=== PATIENT | male | born 1975 | race Caucasian/White ===

== ENCOUNTER 2017-01-23 12:42 | Emergency (ER) | payer SELFPAY ==
[~2017-01-23] VITALS: Ht 182.9 cm; Wt 85.0 kg
[2017-01-23 12:46] VITALS: BP 151/92; PULSE 78; RESP 16; TEMP 98.5; O2SAT 99
[2017-01-23] MEDS ORDERED: SODIUM CHLOR 0.9% 1000 ML INJ 1,000 ML IV SCH (12:55)
[2017-01-23] MEDS ORDERED: ALUMINUM/MAGNESIUM/SIMETH 30 ML CUP PO ONE (13:00)
[2017-01-23] MEDS ORDERED: LIDOCAINE VISCOUS 2% SOLN 15 ML UDC PO ONE (13:00)
[2017-01-23] MEDS ORDERED: ONDANSETRON HCL 4 MG/2 ML VIAL IVP ONE (13:00)
[2017-01-23] MEDS ORDERED: MORPHINE SULFATE 4 MG/ML INJ IV PUSH ONE (13:00)
[2017-01-23] MEDS ORDERED: SODIUM CHLORIDE 0.9% FLUSH 10 ML FLUSH IV FLUSH PRN (13:00)
[2017-01-23] MEDS ORDERED: FAMOTIDINE 20 MG/2 ML VIAL IV PUSH ONE (13:00)
--- NOTE | 2017-01-23 13:00 | PD ---
HPI Chief Complaint: GI Complaint Time Seen by Provider: 12:49 Travel History International Travel<30 days: No Contact w/Intl Traveler<30days: No Traveled to known affect area: No History of Present Illness HPI The patient is a 41-year-old male who presents to the emergency department for one week of nausea, epigastric abdominal pain, and reflux type symptoms. The patient states he's had some intermittent nausea over the last week with epigastric discomfort. He occasionally will have a foul taste in his mouth like he is going to vomit, however, denies any actual vomiting. He does note a few episodes of loose stool, but denies any constipation or chronic diarrhea. Epigastric abdominal pain is sharp, burning, nonradiating. He does have a history of similar symptoms in the past and states he had a upper GI performed which revealed an ulcer at the proximal duodenum. He was placed on medicines and his symptoms resolved within 1 week. He denies any previous abdominal surgeries. He quit drinking alcohol 2 years ago and denies any history pancreatitis or biliary colic. He denies any dysuria, frequency, or urgency. [facility] Past Medical History Narrative Medical Duodenal ulcer Past Surgical History Narrative Surgical Previous upper GI performed Social History Alcohol Use: No Tobacco Use: Yes Allergies-Medications (Allergen,Severity, Reaction): Coded Allergies: No Known Allergies (Unverified , 01/23/17) Reported Meds & Prescriptions Reported Meds & Active Scripts Active Reported Pepto-Bismol Max Strength Liq (Bismuth Subsalicylate) 525 Mg/15 Ml Susp 30 Ml PO PRN Do not exceed 4 doses (120 mL or 8 TBSP) in 24 hours. Review of Systems Except as stated in HPI: all other systems reviewed are Neg General / Constitutional: No: Fever Cardiovascular: No: Chest Pain or Discomfort Respiratory: No: Shortness of Breath Gastrointestinal: Positive: Nausea, Abdominal Pain, Indigestion, No: Vomiting, Diarrhea, Loss of Appetite Genitourinary: No: Dysuria Physical Exam Narrative GENERAL: Awake, alert, pleasant 41-year-old male who appears his stated age and is in no acute respiratory distress. SKIN: Focused skin assessment warm/dry. HEAD: Atraumatic. Normocephalic. EYES: Pupils equal and round. No scleral icterus. No injection or drainage. ENT: No nasal bleeding or discharge. Mucous membranes pink and moist. NECK: Trachea midline. No JVD. CARDIOVASCULAR: Regular rate and rhythm. No murmur appreciated. RESPIRATORY: No accessory muscle use. Clear to auscultation. Breath sounds equal bilaterally. GASTROINTESTINAL: Abdomen soft, tenderness in epigastrium. No guarding or rigidity. Negative McBurney's. Negative Espino's. MUSCULOSKELETAL: No obvious deformities. No clubbing. No cyanosis. No edema. NEUROLOGICAL: Awake and alert. No obvious cranial nerve deficits. Motor grossly within normal limits. Normal speech. PSYCHIATRIC: Appropriate mood and affect; insight and judgment normal. Data Data Last Documented VS Vital Signs Date Time Temp Pulse Resp B/P (MAP) Pulse Ox O2 Delivery O2 Flow Rate FiO2 01/23/17 13:05 78 15 140/84 (102) 98 Room Air 01/23/17 12:46 98.5 Orders Orders Complete Blood Count With Diff (01/23/17 12:55) Comprehensive Metabolic Panel (01/23/17 12:55) Lipase (01/23/17 12:55) Iv Access Insert/Monitor (01/23/17 12:55) Ecg Monitoring (01/23/17 12:55) Oximetry (01/23/17 12:55) Morphine Inj (Morphine Inj) (01/23/17 13:00) Ondansetron Inj (Zofran Inj) (01/23/17 13:00) Sodium Chlor 0.9% 1000 Ml Inj (Ns 1000 M (01/23/17 12:55) Sodium Chloride 0.9% Flush (Ns Flush) (01/23/17 13:00) Famotidine Inj (Pepcid Inj) (01/23/17 13:00) Al-Mag Hy-Si 40-40-4 Mg/Ml Liq (Mag-Al P (01/23/17 13:00) Lidocaine 2% Viscous (Xylocaine 2% Visco (01/23/17 13:00) Labs Laboratory Tests Test 01/23/17 13:35 White Blood Count 7.9 TH/MM3 Red Blood Count 4.98 MIL/MM3 Hemoglobin 14.7 GM/DL Hematocrit 43.7 % Mean Corpuscular Volume 87.6 FL Mean Corpuscular Hemoglobin 29.6 PG Mean Corpuscular Hemoglobin Concent 33.8 % Red Cell Distribution Width 13.2 % Platelet Count 199 TH/MM3 Mean Platelet Volume 8.8 FL Neutrophils (%) (Auto) 60.3 % Lymphocytes (%) (Auto) 29.2 % Monocytes (%) (Auto) 8.5 % Eosinophils (%) (Auto) 0.6 % Basophils (%) (Auto) 1.4 % Neutrophils # (Auto) 4.8 TH/MM3 Lymphocytes # (Auto) 2.3 TH/MM3 Monocytes # (Auto) 0.7 TH/MM3 Eosinophils # (Auto) 0.0 TH/MM3 Basophils # (Auto) 0.1 TH/MM3 CBC Comment DIFF FINAL Differential Comment Blood Urea Nitrogen 8 MG/DL Creatinine 0.68 MG/DL Random Glucose 76 MG/DL Total Protein 6.7 GM/DL Albumin 3.5 GM/DL Calcium Level 8.5 MG/DL Alkaline Phosphatase 72 U/L Aspartate Amino Transf (AST/SGOT) 18 U/L Alanine Aminotransferase (ALT/SGPT) 23 U/L Total Bilirubin 0.5 MG/DL Sodium Level 139 MEQ/L Potassium Level 4.2 MEQ/L Chloride Level 105 MEQ/L Carbon Dioxide Level 26.7 MEQ/L Anion Gap 7 MEQ/L Estimat Glomerular Filtration Rate 128 ML/MIN Lipase 94 U/L MDM Medical Decision Making Medical Screen Exam Complete: Yes Emergency Medical Condition: Yes Medical Record Reviewed: Yes Interpretation(s) Laboratory Tests Test 01/23/17 13:35 White Blood Count 7.9 TH/MM3 Red Blood Count 4.98 MIL/MM3 Hemoglobin 14.7 GM/DL Hematocrit 43.7 % Mean Corpuscular Volume 87.6 FL Mean Corpuscular Hemoglobin 29.6 PG Mean Corpuscular Hemoglobin Concent 33.8 % Red Cell Distribution Width 13.2 % Platelet Count 199 TH/MM3 Mean Platelet Volume 8.8 FL Neutrophils (%) (Auto) 60.3 % Lymphocytes (%) (Auto) 29.2 % Monocytes (%) (Auto) 8.5 % Eosinophils (%) (Auto) 0.6 % Basophils (%) (Auto) 1.4 % Neutrophils # (Auto) 4.8 TH/MM3 Lymphocytes # (Auto) 2.3 TH/MM3 Monocytes # (Auto) 0.7 TH/MM3 Eosinophils # (Auto) 0.0 TH/MM3 Basophils # (Auto) 0.1 TH/MM3 CBC Comment DIFF FINAL Differential Comment Blood Urea Nitrogen 8 MG/DL Creatinine 0.68 MG/DL Random Glucose 76 MG/DL Total Protein 6.7 GM/DL Albumin 3.5 GM/DL Calcium Level 8.5 MG/DL Alkaline Phosphatase 72 U/L Aspartate Amino Transf (AST/SGOT) 18 U/L Alanine Aminotransferase (ALT/SGPT) 23 U/L Total Bilirubin 0.5 MG/DL Sodium Level 139 MEQ/L Potassium Level 4.2 MEQ/L Chloride Level 105 MEQ/L Carbon Dioxide Level 26.7 MEQ/L Anion Gap 7 MEQ/L Estimat Glomerular Filtration Rate 128 ML/MIN Lipase 94 U/L Differential Diagnosis Differential diagnosis includes gastritis, peptic ulcer disease, pancreatitis, biliary colic, cholecystitis, GERD, hiatal hernia. Narrative Course IV was established, labs are drawn and sent, and the patient was placed on cardiac telemetry monitoring and continuous pulse oximetry monitoring. The patient was administered Zantac, GI cocktail, morphine, Zofran, and placed on IV fluids. Lipase level was sent to lab. The patient's white count is unremarkable. LFTs and lipase are normal. The patient was reevaluated at 2 PM. The patient states his symptoms have resolved. Most likely patient has gastritis and/or peptic ulcer disease. I will place the patient on Protonix for 6 weeks of treatment. He is advised to follow-up with gastroenterology if symptoms persist for repeat EGD. Diagnosis Primary Impression: Epigastric abdominal pain Additional Impression: Nausea Patient Instructions: General Instructions Additional Instructions: Protonix as directed. If symptoms persist follow-up with gastroenterology for outpatient endoscopy. Please provide the patient a copy of his labs at discharge. Return if symptoms worsen or progress. Med/Other Pt SpecificInfo: Prescription(s) given Scripts Pantoprazole (Protonix) 40 Mg Tab 40 MG PO DAILY for Reflux, #30 TAB 1 Refill Prov: Leander Gutiérrez MD 01/23/17 Disposition: 01 DISCHARGE HOME Condition: Stable Leander Gutiérrez MD Jan 23, 2017 13:00
[2017-01-23 13:05] VITALS: BP 140/84; PULSE 78; RESP 15; O2SAT 98
[2017-01-23] MEDS ORDERED: PEPT525S PO (13:08)
[2017-01-23 13:42] LABS: AUTOMATED NEUTROPHIL # 4.8 TH/MM3 (1.8-7.7); BASOPHIL # 0.1 TH/MM3 (0-0.2); BASOPHIL % 1.4 % (0.0-2.0); EOSINOPHIL % 0.6 % (0.0-4.0); HEMATOCRIT 43.7 % (39.0-51.0); HEMO FLAGS DIFF FINAL; LYMPH % 29.2 % (9.0-44.0); LYMPHOCYTE # 2.3 TH/MM3 (1.0-4.8); MEAN CELL VOLUME 87.6 FL (80.0-100.0); MEAN CORPUSCULAR HEMOGLOBIN 29.6 PG (27.0-34.0); MEAN CORPUSCULAR HGB CONC 33.8 % (32.0-36.0); MONO % 8.5 % (0.0-8.0); NEUT % 60.3 % (16.0-70.0); PLATELET COUNT 199 TH/MM3 (150-450); RED BLOOD COUNT 4.98 MIL/MM3 (4.50-5.90); RED CELL DISTRIBUTION WIDTH 13.2 % (11.6-17.2); WHITE BLOOD COUNT 7.9 TH/MM3 (4.0-11.0)
[2017-01-23 13:49] LABS: CHLORIDE 105 MEQ/L (98-107); POTASSIUM 4.2 MEQ/L (3.5-5.1); SODIUM (NA) 139 MEQ/L (136-145)
[2017-01-23 13:53] LABS: ANION GAP 7 MEQ/L (5-15); BICARBONATE 26.7 MEQ/L (21.0-32.0); BLOOD UREA NITROGEN 8 MG/DL (7-18)
[2017-01-23 13:56] LABS: ALT (GPT) 23 U/L (12-78); AST (GOT) 18 U/L (15-37); GLOMERULAR FILTRATION RATE 128 ML/MIN (>89)
[2017-01-23 13:58] LABS: TOTAL BILIRUBIN ADULT 0.5 MG/DL (0.2-1.0)
[2017-01-23 13:59] LABS: ALKALINE PHOSPHATASE 72 U/L (45-117)
[2017-01-23] MEDS ORDERED: PROT40TA PO (14:08)
[2017-01-23 14:30] VITALS: BP 137/82; PULSE 66; RESP 18; TEMP 99; O2SAT 98
== END 2017-01-23 14:34 | disposition home or self-care (01) ==
LOC: PHED 12:42
DX: R10.13 Epigastric pain (principal); R11.0 Nausea; Z72.0 Tobacco use
CPT/HCPCS: 80053; 83690; 85025; 96361; 96374; 96375; 99284; J2270; J2405; J7030